=== PATIENT | male | born 1975 ===

== ENCOUNTER 2017-04-04 17:35 | Emergency (ER) | payer SELFPAY ==
[2017-04-04 17:59] VITALS: RESP 18; TEMP 98
[2017-04-04] MEDS ORDERED: Oxycodone/Acetaminophen 5/325 mg Tab PO STA (18:23)
[2017-04-04] MEDS ORDERED: Tetanus/Diphtheria Toxoids 0.5 ml Syringe IM ONE ×2 (18:23→18:29)
[2017-04-04] MEDS ORDERED: Oxycodone/Acetaminophen 5/325 mg Tab ONE (18:29)
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
[2017-04-04 19:36] VITALS: BP 117/75; PULSE 76
[2017-04-04 21:21] VITALS: O2SAT 98
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
== END 2017-04-04 21:40 | disposition home or self-care (01) ==
LOC: C.ER 17:35
DX: S02.5XXA Fracture of tooth (traumatic), initial encounter for closed fracture (principal); Y04.2XXA Assault by strike against or bumped into by another person, initial encounter; Y92.89 Other specified places as the place of occurrence of the external cause